=== PATIENT | male | born 1970 | race Two or more races ===

== ENCOUNTER → 2023-04-20 | Outpatient (REF) | payer OTHER, MEDICAID ==
[~2023-04-20] MED LIST: OLOP5DRO17 OS
[2023-04-20 17:54] LABS: PROSTATIC SPECIFIC AG MONITOR 0.22 NG/ML (< 4.00)
[2023-04-20 17:59] LABS: THYROID STIMULATING HORMONE 1.759 uIU/ML (0.55-4.78); TOTAL 25(OH) VITAMIN D 21.3 NG/ML (20.0-100.0)
[2023-04-20 18:03] LABS: ALBUMIN 3.9 G/DL (3.2-5.2); ALKALINE PHOSPHATASE 110 U/L (46-116); ALT/SGPT < 9 U/L (7.0-40); AST/SGOT < 8 U/L (<34); BILIRUBIN,TOTAL 0.4 MG/DL (0.3-1.2); BLOOD UREA NITROGEN 13 MG/DL (9-23); CALCIUM LEVEL 9.2 MG/DL (8.5-10.1); CARBON DIOXIDE LEVEL 30 MMOL/L (20-31); CHLORIDE LEVEL 104 MMOL/L (98-107); CREATININE FOR GFR 0.88 MG/DL (0.70-1.30); GLOMERULAR FILTRATION RATE > 60.0 (>56); GLUCOSE, FASTING 108 MG/DL (60-100); POTASSIUM SERUM 4.8 MMOL/L (3.5-5.1); SODIUM LEVEL 141 MMOL/L (136-145)
== END ==
LOC: M LAB REF 16:35
PROVIDERS: ATTEND Pediatrics
DX: E55.9 Vitamin D deficiency, unspecified (principal); Z12.5 Encounter for screening for malignant neoplasm of prostate; K59.00 Constipation, unspecified

== ENCOUNTER → 2023-07-19 | Outpatient (CLI) | payer OTHER, MEDICAID | LOC: M RAD 15:44 | PROVIDERS: ATTEND Physician Assistant | DX: K59.00 Constipation, unspecified (principal) ==

== ENCOUNTER 2023-11-13 14:47 | Emergency (ER) | payer MEDICAID, OTHER ==
[~2023-11-13] VITALS: Ht 175.3 cm; Wt 79.4 kg
[2023-11-13] MEDS ORDERED: METH-1178 PO (15:02)
[2023-11-13] MEDS ORDERED: GABA-284 PO (15:02)
[2023-11-13] MEDS: KETOROLAC 60MG 2ML VIAL IM ONE (17:43)
[2023-11-13 18:14] VITALS: BP 129/74; TEMP 97.2; O2SAT 99
== END 2023-11-13 18:32 | disposition home or self-care (01) ==
LOC: M ED 14:47
DX: S09.90XA Unspecified injury of head, initial encounter (principal); M54.2 Cervicalgia; W22.8XXA Striking against or struck by other objects, initial encounter; Y92.9 Unspecified place or not applicable; Y93.9 Activity, unspecified; Y99.0 Civilian activity done for income or pay; Z79.891 Long term (current) use of opiate analgesic; Z79.899 Other long term (current) drug therapy
CPT/HCPCS: 70450; 72125; 72131; 96372; 99283; J1885

== ENCOUNTER → 2023-12-28 | Outpatient (REF) | payer OTHER ==
[~2023-12-28] MED LIST changes: +GABA-284 PO; +METH-1178 PO
[2023-12-28 18:55] LABS: THYROID STIMULATING HORMONE 1.039 uIU/ML (0.55-4.78); TOTAL 25(OH) VITAMIN D 15.3 NG/ML (20.0-100.0)
[2023-12-28 19:00] LABS: ALBUMIN 3.6 G/DL (3.2-5.2); ALKALINE PHOSPHATASE 110 U/L (46-116); ALT/SGPT 18 U/L (7.0-40); AST/SGOT 23 U/L (<34); BILIRUBIN,TOTAL 0.5 MG/DL (0.3-1.2); BLOOD UREA NITROGEN 9 MG/DL (9-23); CARBON DIOXIDE LEVEL 26 MMOL/L (20-31); CHLORIDE LEVEL 106 MMOL/L (98-107); CREATININE FOR GFR 0.92 MG/DL (0.70-1.30); GLOMERULAR FILTRATION RATE > 60.0 (>56); GLUCOSE, FASTING 135 MG/DL (60-100); POTASSIUM SERUM 4.4 MMOL/L (3.5-5.1); SODIUM LEVEL 140 MMOL/L (136-145); TOTAL PROTEIN 7.5 G/DL (5.7-8.2)
== END ==
LOC: M LAB REF 16:18
PROVIDERS: ATTEND Nurse Practitioner Family
DX: K59.00 Constipation, unspecified (principal); E55.9 Vitamin D deficiency, unspecified; Z11.9 Encounter for screening for infectious and parasitic diseases, unspecified

== ENCOUNTER 2025-02-24 17:52 | Emergency (ER) | payer OTHER ==
[~2025-02-24] VITALS: Ht 175.3 cm; Wt 76.2 kg
[2025-02-24 17:55] VITALS: BP 174/80; TEMP 98.9; O2SAT 99
[2025-02-24] MEDS ORDERED: TRIA1CR80 TOP (20:08)
[2025-02-24] MEDS: CETIRIZINE 10 MG TAB PO ONE (20:11)
== END 2025-02-24 20:23 | disposition home or self-care (01) ==
LOC: M ED 17:52
DX: L30.9 Dermatitis, unspecified (principal); Z79.2 Long term (current) use of antibiotics; Z79.899 Other long term (current) drug therapy

== ENCOUNTER → 2025-04-16 | Outpatient (CLI) | payer OTHER ==
[~2025-04-16] MED LIST changes: +KETO-204 PO; +TRIA1CR80 TOP
[2025-04-16 17:10] LABS: BASO # 0.0 10^3/uL (0.0-0.2); BASO % 0.4 % (0.0-1.0); EOS # 0.3 10^3/uL (0.0-0.5); EOS % 3.0 % (0.0-3.0); LYMPH # 2.3 10^3/uL (1.5-5.0); LYMPH % 27.0 % (24.0-44.0); MONO # 0.5 10^3/uL (0.0-0.8); MONO % 5.6 % (2.0-8.0); NEUTROPHILS # 5.3 10^3/uL (1.5-8.5); NEUTROPHILS % 63.6 % (36.0-66.0); PLATELET COUNT, AUTOMATED 169 10^3/uL (150-450)
[2025-04-16 17:33] LABS: CREATININE, URINE 231.0 MG/DL; MALB URINE SIEMENS 7.0 MG/L; MAU/CREAT RATIO 3.0 MCG/MG (0.0-30.0)
[2025-04-16 17:33] LABS: ALT/SGPT 17 U/L (7.0-40); AST/SGOT 18 U/L (<34); CALCIUM LEVEL 9.1 MG/DL (8.5-10.1); CARBON DIOXIDE LEVEL 29 MMOL/L (20-31); CHLORIDE LEVEL 105 MMOL/L (98-107); CHOLESTEROL LEVEL 170 MG/DL (<200); CHOLESTEROL RISK RATIO 7.11 (<5); CREATININE FOR GFR 0.89 MG/DL (0.70-1.30); GLOMERULAR FILTRATION RATE > 90.0 (>56); NON-HDL-C 146.1 MG/DL; POTASSIUM SERUM 3.8 MMOL/L (3.5-5.1); SODIUM LEVEL 144 MMOL/L (136-145); TRIGLYCERIDES LEVEL 626 MG/DL (<150)
[2025-04-16 17:51] LABS: ESTIMATED AVERAGE GLUCOSE 105.0 MG/DL (60-110)
== END ==
LOC: M EKG 16:27
PROVIDERS: ATTEND Nurse Practitioner Family
DX: I10 Essential (primary) hypertension (principal); E66.3 Overweight; R19.7 Diarrhea, unspecified

== ENCOUNTER 2025-05-18 19:32 | Emergency (ER) | payer OTHER ==
[~2025-05-18] VITALS: Ht 175.3 cm; Wt 76.1 kg
[2025-05-18 20:46] LABS: BASO # 0.0 10^3/uL (0.0-0.2); BASO % 0.4 % (0.0-1.0); EOS # 0.1 10^3/uL (0.0-0.5); EOS % 1.4 % (0.0-3.0); LYMPH # 2.2 10^3/uL (1.5-5.0); LYMPH % 24.7 % (24.0-44.0); MONO # 0.5 10^3/uL (0.0-0.8); MONO % 5.2 % (2.0-8.0); NEUTROPHILS # 6.1 10^3/uL (1.5-8.5); NEUTROPHILS % 68.1 % (36.0-66.0); PLATELET COUNT, AUTOMATED 140 10^3/uL (150-450)
[2025-05-18 21:25] LABS: ALT/SGPT 18 U/L (7.0-40); AST/SGOT 21 U/L (<34); CALCIUM LEVEL 9.4 MG/DL (8.5-10.1); CARBON DIOXIDE LEVEL 31 MMOL/L (20-31); CHLORIDE LEVEL 104 MMOL/L (98-107); CREATININE FOR GFR 1.06 MG/DL (0.70-1.30); GLOMERULAR FILTRATION RATE 84.4 (>56); POTASSIUM SERUM 4.4 MMOL/L (3.5-5.1); SODIUM LEVEL 144 MMOL/L (136-145)
[2025-05-18] MEDS: ONDANSETRON 4MG ORAL DISINTEGRATING TAB PO ONE (23:23)
[2025-05-18] MEDS ORDERED: ONDA-282 PO (23:57)
[2025-05-19 00:13] VITALS: BP 153/72; TEMP 97.6; O2SAT 97
== END 2025-05-19 00:14 | disposition home or self-care (01) ==
LOC: M ED 19:32
DX: R11.10 Vomiting, unspecified (principal); R19.7 Diarrhea, unspecified; B17.10 Acute hepatitis C without hepatic coma; F41.9 Anxiety disorder, unspecified; F32.A Depression, unspecified; F19.11 Other psychoactive substance abuse, in remission; Z87.891 Personal history of nicotine dependence; Z79.83 Long term (current) use of bisphosphonates; Z79.899 Other long term (current) drug therapy

== ENCOUNTER 2025-08-11 01:53 | Emergency (ER) | payer OTHER ==
[~2025-08-11] VITALS: Ht 175.3 cm; Wt 73.0 kg
[2025-08-11] MEDS: diphenhydrAMINE 50 MG/ML VIAL IM ONE (01:07)
[2025-08-11 01:43] LABS: BASO # 0.1 10^3/uL (0.0-0.2); BASO % 0.4 % (0.0-1.0); EOS # 0.2 10^3/uL (0.0-0.5); EOS % 1.1 % (0.0-3.0); LYMPH # 1.4 10^3/uL (1.5-5.0); LYMPH % 8.7 % (24.0-44.0); MONO # 0.6 10^3/uL (0.0-0.8); MONO % 4.0 % (2.0-8.0); NEUTROPHILS # 13.7 10^3/uL (1.5-8.5); NEUTROPHILS % 85.2 % (36.0-66.0); PLATELET COUNT, AUTOMATED 227 10^3/uL (150-450)
[~2025-08-11 01:53] MED LIST changes: +HALOPERIDOL LACTATE 5 MG/ML VIAL As Ordered ONE; +ONDA-282 PO
[2025-08-11 02:09] LABS: AMPHETAMINES LEVEL URINE NEGATIVE (NEGATIVE)
[2025-08-11 02:10] LABS: BARBITURATES URINE NEGATIVE (NEGATIVE); BENZODIAZEPINES URINE NEGATIVE (NEGATIVE); CANNABINOIDS URINE NEGATIVE (NEGATIVE); OPIATES URINE NEGATIVE (NEGATIVE); PHENCYCLIDINE URINE NEGATIVE (NEGATIVE)
[2025-08-11 02:11] LABS: ETHYL ALCOHOL (ETHANOL) 0.003 % (0.000-0.010)
[2025-08-11 02:11] LABS: COCAINE METABOLITE URINE POSITIVE (NEGATIVE); METHADONE URINE POSITIVE (NEGATIVE)
[2025-08-11 02:13] LABS: ALT/SGPT 13.0 U/L (7.0-40); AST/SGOT 29.0 U/L (<34); CALCIUM LEVEL 8.7 MG/DL (8.5-10.1); CARBON DIOXIDE LEVEL 18.0 MMOL/L (20-31); CHLORIDE LEVEL 102.0 MMOL/L (98-107); CREATININE FOR GFR 1.66 MG/DL (0.70-1.30); GLOMERULAR FILTRATION RATE 49.0 (>56); POTASSIUM SERUM 3.7 MMOL/L (3.5-5.1); SODIUM LEVEL 137.0 MMOL/L (136-145)
[2025-08-11] MEDS: ACETAMINOPHEN 325 MG TAB PO ONE (04:26)
[2025-08-11] MEDS: IPRATROPIUM 0.5 MG/ALBUTEROL 2.5 MG INH SOL UD 3 ML NEB ONE (04:48)
[2025-08-11] MEDS: HALOPERIDOL LACTATE 5 MG/ML VIAL IM ONE (06:55)
[2025-08-11 08:15] VITALS: BP 127/68; TEMP 97.6; O2SAT 96
[2025-08-11] MEDS ORDERED: OVERDOSE RESCUE KIT XX SCH (08:15)
== END 2025-08-11 08:53 | disposition home or self-care (01) ==
LOC: M ED 01:53 → EDBD 01:53 → M ED 08:53
DX: F19.10 Other psychoactive substance abuse, uncomplicated (principal); Z79.899 Other long term (current) drug therapy
CPT/HCPCS: 71045; 80048; 80076; 80307; 82077; 83690; 85025; 94640; 96372; 99285; J1200; J2060